=== PATIENT | female | born 1955 | race Caucasian/White ===

== ENCOUNTER 2018-12-14 00:28 | Outpatient (CLI) | payer BC, SELFPAY ==
--- NOTE | 2018-12-14 17:30 | DI.MAMMO_ITS ---
SYMPTOMS/DIAGNOSIS: SCREENING, Z12.31 MAMMOGRAM: Mammograms were interpreted according to the usual protocol including computer analysis with CAD system, tomosynthesis and C view imaging. The breasts are of moderate density with fairly symmetrical distribution of fibroglandular tissue. No dominant mass or clumped microcalcification is identified in either breast. Current examination is compared with previous examinations including May 2016 and there has been no gross interval change in appearance in comparison with the previous studies. CONCLUSION: No specific evidence of malignancy at this time. Routine screening examinations are suggested at yearly intervals in this age group according to the ACS/ACR guidelines. Category 1, breast density category B. MQSA ASSESSMENT OF FINDINGS: Negative. Category 1. Patient will receive a letter notifying them of these results. BI-RADS category B. There are scattered areas of fibroglandular density.
== END 2018-12-14 00:48 ==
PROVIDERS: PCP Internal Medicine; Visit Provider Student in an Organized Health Care Education/Training Program
DX: Z12.31 Encounter for screening mammogram for malignant neoplasm of breast (principal)
CPT/HCPCS: 77063; 77067

== ENCOUNTER 2018-12-17 02:00 | Outpatient (CLI) | payer BC, SELFPAY ==
[2018-12-17 08:49] LABS: Calculated LDL 206; Cholesterol 288 mg/dL (50-200); Glucose 98 mg/dL (70-100); HDL Cholesterol 67 mg/dL (40-60); TSH (W/Ref FT4) 2.15 uIU/mL (0.358-3.74); Triglyceride 79 mg/dL (30-150)
== END 2018-12-17 02:20 ==
PROVIDERS: PCP Internal Medicine; Visit Provider Internal Medicine
DX: E03.9 Hypothyroidism, unspecified (principal); E78.5 Hyperlipidemia, unspecified; Z83.3 Family history of diabetes mellitus; Z13.1 Encounter for screening for diabetes mellitus
CPT/HCPCS: 36415; 80061; 82947; 83721; 84443

== ENCOUNTER 2019-04-17 22:10 | Observation (INO) | payer BC, SELFPAY ==
[2019-04-17 22:15] VITALS: BP 139/65; PULSE 89; RESP 16; TEMP 36.7; O2SAT 98
--- NOTE | 2019-04-17 22:19 | DI.RAD_ITS ---
EXAM: XR ANKLE LT COMPLETE INDICATION: pain after twisting. COMPARISON: No exams were available for comparison TECHNIQUE: 2D digital imaging was performed. FINDINGS: A trimalleolar fracture of the left ankle is demonstrated with disruption of the mortise joint with a nterior displacement of the tibia at the tibiotalar joint. Prominent soft tissue swelling is noted a bout the ankle.
--- NOTE | 2019-04-17 22:21 | W.ED.GENAD ---
Discharge Plan Disposition [facility] Condition: Stable Discharge Details Chief Complaint: Orthopedic Clinical Impression: Closed trimalleolar fracture of left ankle Primary Care Provider: Nirmala Flores ED Provider: Johnny Duffy Home Meds and New Rx's Prescriptions: No Action bupropion HCl 75 mg tablet 75 mg PO DAILY Qty: 90 RF: 3 sertraline 50 mg tablet 50 mg PO DAILY Qty: 90 RF: 2 levothyroxine 75 mcg tablet 75 mcg PO DAILY Qty: 90 RF: 2 Medical Decision Making 63-year-old female who stepped oddly on her left ankle with a twisting motion at home, with immediate pain and deformity. She has primarily medial malleoli or ecchymosis, swelling, tenderness on exam. Vascular exam is unremarkable, capillary refill less than 2 seconds, sensation intact throughout. Ice placed, analgesia offered, patient referred for x-ray which reveals displaced trimalleolar ankle fracture. Patient given fentanyl, closed reduction attempted with improved clinical alignment. Postreduction x-rays were persistent posterior displacement. Case discussed with Dr. Rivera who will admit the patient overnight for operative repair in the morning. HPI General Mode of arrival: wheelchair. Date/Time Provider Initiated Documentation: 04/17/19 22:10. Limitations to Documentation: no limitations. Information obtained by: patient. History of Present Illness 63 year old F presents to the emergency department with the chief complaint of Left ankle pain after twisting and landing on it uncomfortably, described as moderate, Quality is described as dull, and is localized to the lower extremity. Patient reports no radiation. Patient started experiencing this minute(s) and it has been constant. No relieving factors improve symptom(s), No exacerbating factors reported . Patient notes no other symptoms.. Patient did receive the following treatments prior to arrival, none Related Data Home Medications Medication Instructions Recorded Confirmed bupropion HCl 75 mg tablet 75 mg PO DAILY #90 tab 11/23/18 04/17/19 sertraline 50 mg tablet 50 mg PO DAILY #90 tab-cap 11/24/18 04/17/19 levothyroxine 75 mcg tablet 75 mcg PO DAILY #90 tab-cap 02/17/19 04/17/19 Previous Rx's Medication Instructions Recorded bupropion HCl 75 mg tablet 75 mg PO DAILY #90 tab 11/23/18 sertraline 50 mg tablet 50 mg PO DAILY #90 tab-cap 11/24/18 levothyroxine 75 mcg tablet 75 mcg PO DAILY #90 tab-cap 02/17/19 Allergies Allergy/AdvReac Type Severity Reaction Status Date / Time lanolin Allergy Severe itching Verified 12/22/18 16:00 and rash nickel Allergy Unknown RASH Verified 12/22/18 16:00 perfume Allergy Unknown unknown Verified 12/22/18 16:00 thimerosal Allergy Unknown unknown Verified 12/22/18 16:00 General Stated Complaint: Orthopedic KWAME: 4 Review of Systems Review of Systems Narrative: No numbness or tingling. Denies other injury. She has otherwise been well. PFSH Surgical History Ligation of fallopian tube BSO Social History Smoking/Tobacco Use Status: Never Alcohol Intake: current Alcohol Intake frequency: 0-2 drinks per day Alcohol type: wine Drug use: Never Number of Children: 1 current occupation: [employer] Seatbelt use: always Drive intox or ride w/intox tractor trailer moving van driver: No Working smoke detector in home: Yes Fire extinguisher in home: Yes Carbon monox detector in home: Yes Do you feel safe at home: Yes Do you feel safe in your relationship?: Yes Exam Narrative Exam Narrative: GEN: awake, alert, oriented 3. Pleasant, well groomed, interactive. HEAD: Normocephalic, atraumatic ENT: Mucous membranes moist, External ear exam unremarkable EYES: PERRL, EOMI EXT: Right lower extremity unremarkable. Left lower extremity with medial malleoli are swelling, ecchymosis, tenderness. Palpable DP bilaterally. Distal motor is intact. Range of motion is limited by pain. Neuro: Grossly normal neurologic exam, conversant, interactive. Psych: Speech fluent, thoughts congruent, affect normal Course Vital Signs Vital signs: Vital Signs Temperature 36.7 C 04/17/19 22:15 Pulse 89 04/17/19 22:15 Respiratory Rate 16 04/17/19 22:15 Blood Pressure 139/65 04/17/19 22:15 Pulse Oximetry 98 04/17/19 22:15 Temperature 36.7 C 04/17/19 22:15 Temperature Source Skin 04/17/19 22:15 Pulse 89 1005/19 22:15 Respiratory Rate 16 04/17/19 22:15 Blood Pressure 139/65 04/17/19 22:15 Blood Pressure Position Sitting 04/17/19 22:15 Pulse Oximetry 98 04/17/19 22:15 Oxygen Delivery Method Room Air 04/17/19 22:15 Oxygen Flow Rate 0 04/17/19 22:15
--- NOTE | 2019-04-17 23:20 | DI.RAD_ITS ---
EXAM: XR ANKLE LT 2V INDICATION: s/p closed reduction. COMPARISON: XR ANKLE LT COMPLETE from 04/17/2019 TECHNIQUE: 2D digital imaging was performed. FINDINGS: Post reduction examination again reveals a fracture dislocation of the distal tibia with fractures of the medial and lateral and posterior malleoli.
[2019-04-17] MEDS: fentaNYL 100 MCG/2 ML VIAL 75 MCG IVP (23:25)
--- NOTE | 2019-04-17 23:26 | DI.VRAD_ITS ---
PROCEDURE INFORMATION: Exam: XR Left Ankle Exam date and time: 04/17/2019 10:19 PM Clinical history: 63 years old, female; Ankle; Left; Patient HX: Pain after twisting TECHNIQUE: Imaging protocol: XR Left ankle. Views: 3 or more views. COMPARISON: No relevant prior studies available. FINDINGS: Bones/joints: There is a trimalleolar fracture of the ankle with apex volar angulation of the fractured distal fibula and up to 1.1 cm of distraction of the angulated fibula fracture. There is also dorsal dislocation of the talus relative to the tibial plafond. Soft tissues: Marked superficial soft tissue swelling is present. IMPRESSION: Trimalleolar ankle fracture with dorsal dislocation of the talus relative to the tibia. The sheath Dictated and Authenticated by: Alo Long MD. Ordering:CHARLOTTE Turner MD
[2019-04-18] VITALS (9 sets, daily range): BP systolic 87–146; BP diastolic 36–88; PULSE 75–92; RESP 12–18; TEMP 36.2–36.9; O2SAT 95–98
--- NOTE | 2019-04-18 00:02 | DI.VRAD_ITS ---
PROCEDURE INFORMATION: Exam: XR Left Ankle Exam date and time: 04/17/2019 11:31 PM Clinical history: 63 years old, female; Condition or disease; Other: Post reduction views; Patient HX: S/P closed reduction TECHNIQUE: Imaging protocol: XR Left ankle. Views: 1 or 2 views. COMPARISON: CR XR ANKLE LT COMPLETE 04/17/2019 10:50 PM FINDINGS/IMPRESSION: Bones/joints: Soft cast material overlies the [id number] and limits evaluation. Redemonstration of the trimalleolar fracture and dorsal dislocation of the talus. Dictated and Authenticated by: Alo Long MD. Ordering:CHARLOTTE Turner MD
[2019-04-18 00:51] LABS: Anion Gap 13.2 mmol/L (3-11); BUN 16 mg/dL (7-18); CO2 23.8 mmol/L (21.0-32.0); Calcium 8.6 mg/dL (8.5-10.1); Chloride 106 mmol/L (98-107); Glucose 102 mg/dL (70-100); Potassium 4.2 mmol/L (3.5-5.1); Sodium 143 mmol/L (136-145)
[2019-04-18] MEDS: Ketorolac 15 MG/ML VIAL IVP ×3 (00:58→23:06)
[2019-04-18] MEDS: Normal Saline Flush 10 ML SYR IVP ×4 (00:58→23:07)
[2019-04-18] MEDS: oxyCODONE 5 MG TAB PO ×2 (02:19→07:38)
--- NOTE | 2019-04-18 07:23 | OCONE_ITS ---
Date of service: 04/18/19 Time of Service: 06:30 History of Present Illness History of Present Illness Chief Complaint: Left Ankle Pain Narrative: Amairani is a 63-year-old who presented to the emergency department late last night for left ankle pain and deformity. She tripped awkwardly within her home and suffered immediate pain and deformity to her left ankle. She reports that this ankle has always been a weak spot. She reports many times hitting it or banging on things. She reports having numbness to the left foot and always feeling like the left ankle was getting hurt. She is unsure exactly what she tripped on her stumbled on but she denies having any lightheadedness, dizziness, chest pain or palpitations at the time. She did not hit her head. She did not lose consciousness. Her only pain is in the left ankle. A re duction attempt was made by Dr. Duffy but was unsuccessful. I was called in consultation. Consults Consult date: 04/17/19 Requesting physician: Johnny Duffy Consult Reason Left ankle fracture dislocation Assessment and Plan Assessment and plan (1) Fracture dislocation of left ankle: Status: Acute Assessment and plan: Amairani is a 63-year-old who suffered a fracture dislocation of the left ankle. An attempted reduction was done last night but there is still notable posterior displacement. It is imperative that anatomic alignment is restored to prevent cartilage . Given 1 unsuccessful reduction with sedation last night, I recommend reduction in general anesthetic. If the skin is not too swollen we will proceed with operative fixation at that time. We are within 12 hours from the initial injury. I reviewed the technical details of the case with Amairani. I also discussed the risk to include bleeding, infection, pain, stiffness, hardware failure, hardware prominence, malunion, nonunion, need for repeat procedures, damage to nerves and vessels, blood clot. Despite these risk, she elects to proceed. She does express significant anxiety about having to manage life. I did express that she will be nonweightbearing for 6 weeks but really not weightbearing on the foot without an assistive device for 3 months. She expresses concern about taking care of herself at home but is adamant that she had will not go to any nursing facility. I did discuss the use of a knee scooter to assist with ambulation but no matter what, she will have to maintain nonweightbearing precautions. I will have the care management team meet with her as well today. After surgery, she can discharge to home but may need 1 additional night to work with physical therapy. Qualifiers: Encounter type: initial encounter Fracture type: closed Qualified Code(s): S82.892A - Other fracture of left lower leg, initial encounter for closed fracture Review of Systems Review of Systems ROS Unobtainable: All systems reviewed & are unremarkable except as noted in HPI and below PFSH Surgical History Ligation of fallopian tube BSO Family History Brother Heart disease Father Heart disease Sister Diabetes Hypothyroid Mother Personal history of malignant neoplasm lung Social History Smoking/Tobacco Use Status: Never Alcohol Intake: current Alcohol Intake frequency: 0-2 drinks per day Alcohol type: wine Drug use: Never Number of Children: 1 current occupation: [employer] 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 She is able to extend and flex the great toe. Sensation is grossly intact over the superficial peroneal nerve distribution. However, she feels that it is not normal. Intact deep peroneal and tibial nerve sensation. Capillary refill less than 2 seconds. Results Last Vital Signs Temp 36.9 C 04/18/19 00:32 Pulse 88 04/18/19 00:32 Resp 18 04/18/19 00:32 BP 146/88 H 04/18/19 00:32 Pulse Ox 96 04/18/19 00:32 Labs Result diagrams: 04/18/19 00:23 Labs: Laboratory Results - last 24 hr 04/18/19 00:23 Sodium 143 Potassium 4.2 Chloride 106 Carbon Dioxide 23.8 Anion Gap 13.2 H BUN 16 Creatinine 0.80 Estimated GFR/1.73 m2 >= 60.00 Glucose 102 H Calcium 8.6 Imaging Imaging Studies: X-ray of the left ankle shows a trimalleolar ankle fracture wit h notable dislocation of the talus posteriorly. There is a long oblique fracture of the fibula in the coronal plane with some comminution at the level of the syndesmosis. There is also a notable posterior malleolar fracture fragment and some comminution of the medial malleolus. Postreduction films show some improvement in alignment but still persistent posterior displacement of the talus.
--- NOTE | 2019-04-18 07:59 | DI.RAD_ITS ---
EXAM: XR ANKLE LT 2V CLINICAL HISTORY: FRACTURE DISLOCATION LEFT ANKLE. TECHNIQUE: 2D and realtime digital imaging was performed. COMPARISON: XR ANKLE LT 2V from 04/17/2019 FINDINGS: When compared with the previous examination, the patient is status post plate and screw fixation of t he lateral malleolar fracture and screw fixation of the tibial fracture, caodaism of the mortise i s noted. The fracture fragments in excellent position. FLUORO TIME: 77.1 seconds
[2019-04-18] MEDS: Bupivacaine 0.5% Pres-Free 30 ML VIAL (08:33)
[2019-04-18] MEDS: Lactated Ringers 1,000 ML 30 ML IV (08:48)
--- NOTE | 2019-04-18 08:54 | PDOC.CMIN ---
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 Her daughter, Dia resides nearby in [place], [place] and is her primary support person. Amairani reports being completely independent at baseline in the community. CURRENT FUNCTIONAL STATUS:: Amairani was lying in bed, leg elevated. She reported having a nerve block and being nervous about the block wearing off which she anticipated happening around midnight. Amairani's daughter, Dia and Dia's significant other, Larry. Amairani was pleasant in interaction and forthcoming with information. She reported Dia and Larry were staying at her house to care for her dogs including her new puppy until she returns home. ADVANCE DIRECTIVES:: None on file. Has patient been provided with information about the portal?: Yes Did the patient sign up for the portal?: No CODE STATUS:: Full Code INSURANCE COVERAGE / FINANCIAL ISSUES:: BC/BS CURRENT HOME/COMMUNITY SERVICES/EQUIPMENT:: No current services or equipment. PRIMARY CARE PHYSICIAN:: Nirmala Flores POTENTIAL DISCHARGE NEEDS:: FWW coordination. Stair training with PT. Amairani reports she will be reaching out to a friend to possibly borrow a knee scooter. PATIENT/FAMILY EDUCATION NEEDS:: Review discharge instructions, discuss Ask Me Three. ANTICIPATED BARRIERS TO DISCHARGE:: None identified. TRANSPORTATION:: Via private vehicle with her daughter. PLAN:: Amairani will continue to be closely monitored for pain and work with PT on increased mobility, stair training and independent transfers. She will return home when ready per MD. She will transport via private vehicle with her daughter, Dia.
[2019-04-18] MEDS: ceFAZolin 2,000 MG in Normal Saline 100 ML 200 MG IVPB (09:00)
--- NOTE | 2019-04-18 10:43 | PHARADMIT ---
Admission Pharmacy Clinical Review LEFT ANKLE FRACTURE (OR on 04/18/19-) Code Status Full Code Current Weight 79.379 kg Renally Cleared and Narrow Therapeutic Index Meds CrCl~59ml/min QTc Value / Action Taken n/a BP Control, Fever BP 146/88 Afebrile Pain 8/10 Electrolytes reviewed K+ 4.2 DVT Prophylaxis ASA 81mg po BID Opiate Usage / Scheduled Bowel Regimen Ordered yes Oxy/no bowel meds Plt/SCr for Heparin / Enoxaparin INR for Warfarin H/H stable, WBC/Bands ?? none drawn Antibiotic appropriateness Cefazolin post-op but not stopped @ 3 doses.....anticipate pt will not be here for very long, verified w/MD x 3 doses Cultures and Sensitivities none Surgical ABX d/c within 24 hr DM control / Insulin Dosing BG 102 Heart Failure (Check EF%) (REYES's, B-Block, Diuretics) IV to PO Switch Home Meds Reviewed Note under Bupropion states pt no longer taking..placed med on hold Home Meds Not Ordered ok Comments
--- NOTE | 2019-04-18 11:56 | NUR.NOTE ---
Nursing Note: Patient transferred from PACU back to floor via bed at approximately 1150. VSS. See worklist. Patient drowsy. Positive pedal pulse on left foot. Patient can wiggle toes.
[2019-04-18] MEDS: Acetaminophen 500 MG TAB 1000 MG PO ×2 (13:23→20:25)
[2019-04-18] MEDS: Aspirin E.C. 81 MG TABEC PO (20:25)
[2019-04-19 00:20] VITALS: BP 115/69; PULSE 70; RESP 17; TEMP 36.5; O2SAT 95
[2019-04-19] MEDS: Levothyroxine 75 MCG TAB PO (06:51)
--- NOTE | 2019-04-19 07:59 | DSE_ITS ---
Date of service: 04/19/19 Time of Service: 08:00 DS: Diagnosis Discharge Diagnosis (1) Fracture dislocation of left ankle: Status: Acute Discharge Plan Disposition Patient Disposition: HOME Condition: Stable Discharge Details Chief Complaint: Orthopedic Clinical Impression: Closed trimalleolar fracture of left ankle Reason For Visit: LEFT ANKLE FRACTURE DISLOCATION Admit Date/Time: 04/17/19 23:59 Admit Provider: Jace Rivera Attending Provider: Jace Rivera Primary Care Provider: Nirmala Flores ED Provider: Johnny Duffy Hospital Course Hospital Course: Patient was admitted to the medical/surgical floor for a left ankle fracture dislocation. She was taken to the operating room for fracture fixation. It was tolerated well without any notable medical, surgical, or anesthetic complications. Mobilization began postoperatively, maintaining NWB precautions. Vitals were stable. Physical therapy worked with the patient and was cleared for discharge home. No acute medical issues. Home Meds and New Rx's Prescriptions: New aspirin 81 mg tablet,delayed release (DR/EC) 81 mg PO BID Qty: 60 RF: 0 acetaminophen 500 mg tablet 1,000 mg PO Q8H PRN (Reason: pain) Qty: 90 RF: 3 ibuprofen 600 mg tablet 600 mg PO TID PRNQty: 90 RF: 3 oxycodone 5 mg tablet 5 mg PO Q4H Qty: 10 RF: 0 Continued bupropion HCl 75 mg tablet 75 mg PO DAILY Qty: 90 RF: 3 sertraline 50 mg tablet 50 mg PO DAILY Qty: 90 RF: 2 levothyroxine 75 mcg tablet 75 mcg PO DAILY Qty: 90 RF: 2 Discharge Instructions Additional Instructions: Activity: You are NON WEIGHT BEARING. You should keep the leg elevated as much as possible. You may wiggle your toes and move your hip and knee. Dressings: You should keep your splint clean and dry. Do NOT get wet or dirty. If you have issues with your splint, please call the office at [phone] or the hospital after hours. Medications: - You should take Tylenol and Ibuprofen around the clock for baseline pain. - You have been prescribed a stronger narcotic, Oxycodone, for breakthrough pain. - You should take a Baby Aspirin (81mg) twice a day for blood clot prevention. Follow-up: 2 weeks Referrals: Jace Rivera MD [ [facility] STAFF PHYSICIAN] - Activity:: Activity as Tolerated Equipment/Supplies:: Walker Diet:: As Tolerated Discharge Orders Discharge Orders: Discharge Order (Routine); Ordered 04/19/19 Ordered By: Jace Rivera DS: Summary Status at Discharge Functional status at discharge: uses cane/walker Overall status at discharge: patient is back to baseline Mental Status: mental status grossly normal Speech and Movement: speech and movement normal Mood: congruent mood Affect: normal affect Exam Psych Mental Status: mental status grossly normal Speech and Movement: speech and movement normal Mood: congruent mood Affect: normal affect DS: Data Vitals/I&O Vitals and I&O: Vital Signs Temperature 36.5 C 04/19/19 00:20 Temperature Source Tympanic 04/19/19 00:20 Pulse 70 04/19/19 00:20 Pulse Rhythm Regular 04/18/19 23:10 Respiratory Rate 17 04/19/19 00:20 Respiratory Effort Non-Labored 04/18/19 23:10 Respiratory Depth Normal 04/18/19 23:10 Respiratory Pattern Normal 04/18/19 23:10 Blood Pressure 115/69 04/19/19 00:20 Blood Pressure Position Sitting 04/17/19 22:15 Pulse Oximetry 95 04/19/19 00:20 Respiratory End-tidal CO2 42 04/18/19 11:32 Oxygen Delivery Method Room Air 04/19/19 00:20 Oxygen Flow Rate 0 04/19/19 00:20 Pain Level 0 04/19/19 03:49 Intake & Output 04/18/19 04/18/19 04/19/19 11:59 23:59 11:59 Intake Total 1000 / 1483.5 483.5 / 1483.5 400 / 400 Output Total 400 / 400 Balance 600 / 1083.5 483.5 / 1083.5 400 / 400 Weight 79.379 kg Intake: IV 1000 / 1243.5 243.5 / 1243.5 Oral 240 / 240 400 / 400 Output: Urine 400 / 400 Other: Urine Color Yellow Urine Appearance Clear Comment Unable to measure. Patient voided in the bathroom independently. Emesis Description None Voiding Methods Toilet Toilet [facility] Surgical History Ligation of fallopian tube BSO Family History Brother Heart disease Father Heart disease Sister Diabetes Hypothyroid Mother Personal history of malignant neoplasm lung Social History Smoking/Tobacco Use Status: Never Alcohol Intake: current Alcohol Intake frequency: 0-2 drinks per day Alcohol type: wine Drug use: Never Number of Children: 1 current occupation: [employer] 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
[2019-04-19] MEDS: Aspirin E.C. 81 MG TABEC PO (08:07)
[2019-04-19] MEDS: Sertraline 50 MG TAB PO (08:08)
[2019-04-19] MEDS: Normal Saline Flush 10 ML SYR IVP ×2 (08:08→10:35)
[2019-04-19] MEDS: Acetaminophen 500 MG TAB 1000 MG PO (08:11)
[2019-04-19] MEDS: Ketorolac 15 MG/ML VIAL IVP (10:35)
--- NOTE | 2019-04-19 11:58 | PT.INIE ---
Date of service: 04/19/19 Time of Service: 10:00 PT Notes Inpatient Physical Therapy Evaluation Date: 04/19/19 Referring Doctor: Dr Rivera PT Orders: PT CONSULT: s/p ORIF left ankle Precautions: NWB LLE Patient Profile/Admitting Diagnosis: PT consult referred on postop day 1 status post left ankle ORIF. PMHX: Noncontributory Social History/Home Situation: Patient lives in a single level home with 4 outdoor steps to enter. She has bilateral rails, although reports that she can reach only one rail at the time. She lives alone, although has assistance from an adult daughter who lives nearby. She is typically fully independent, working full-time in an administrative position. Equipment Owned/DME: Patient reports that she has access to a walker. She also has a friend with a knee scooter, which she is considering borrowing. Subjective: Amairani states that she is been up and about with a walker. She would prefer to transition to use of crutches, stating she is concerned about stair management and being able to get around at work. Objective: General Observation: Resting in bed with left lower extremity elevated. She has a Mack wrap in place at the left ankle. No lines. Mental Status: A and O x3 Pain: 0/10 ROM: Right Upper Extremity: WFL Left Upper Extremity: WFL Right Lower Extremity: WFL Left Lower Extremity: Left ankle immobilized. Range of motion at knee and hip WFL. Strength: Right Upper Extremity: Stopperer Assembler is strong and equal. Biceps and triceps 5/5. Left Upper Extremity: Stopperer Assembler is strong and equal. Biceps and triceps 5/5. Right Lower Extremity: Hip flexion 5/5. Quads 5/5. Ankle dorsiflexion 5/5. Left Lower Extremity: Hip flexion at least 3/5. Quads 3/5 or greater. Patient is unable to wiggle toes, reporting continued numbness postoperatively. Sensation: Diminished sensation to light touch distally Bed Mobility/Transfers: Supine?sit: Independent Sit?supine: Independent Sit?stand: Independent with NWB left lower extremity Stand?sit: Independent, NWB LLE Gait: Patient ambulates with bilateral axillary crutches, NWB LLE 20 feet with supervision only. She ambulates an additional 100 feet x 2 with CG x1. She requires intermittent cues and rest periods. She was instructed in management of therapeutic stairs with left axillary crutch and RUE to rail, maintaining NWB LLE. She requires CG x1 and cues for effective completion, with good safety and tolerance. Balance: Static Sitting: Normal Dynamic Sitting: Normal Static Standing: Good Dynamic Standing: Fair Informed Consent/Education: Patient instructed in purpose of PT consult and plan of care. Patient received gait training for straight plane ambulation and stair management, both with utilization of axillary crutches. Patient was issued and fitted with axillary crutches for home use. Assessment: Patient is a 63 year old female referred to physical therapy services with the diagnosis of left ankle trimalleolar fracture, 1 day status post ORIF. Patient presents with clinical signs and symptoms consistent with postoperative status, as demonstrated by the following impairment level findings: 1. Gait impairments due to NWB LLE 2. Range of motion deficits due to postoperative immobilization of left ankle 3. Decreased sensation LLE 4. Decreased activity tolerance due to NWB LLE Impairments are contributing to the following functional limitations: 1. Decreased activity tolerance 2. gait impairments due to NWB LLE Patient is assessed as a Low 21805 complexity based on the following: History: 63-year-old female 1 day postop left ankle ORIF, now NWB LLE x6 weeks. No significant contributing medical history. Examination: Functional limitations as noted above Presentation: Evolving due to acute postoperative status Decision Making: Low complexity Plan of Care/Treatment Plan: Patient received a single session of PT intervention for evaluation and gait training. She is able to effectively manage axillary crutches with both straight plane ambulation and stair management. She was issued bilateral axillary crutches, which were fitted to her during today's session. She is safe for transition back home with assistance from family once medically cleared. DISCHARGE RECOMMENDATIONS: Home with bilateral axillary crutches TREATMENT CODE/TIME: 10:00?1035 ([id number], [id number]) Aparna Preciado, PT, DPT [facility]
--- NOTE | 2019-04-19 14:41 | PDOC.CMDIS ---
- If Service Date Differs Date of service: 04/19/19 Time of Service: 14:41 LACE Index Scoring Tool - Questions: Length of Stay (in days): 3 Acuity (Admit via E.D.?): Yes E.D. Visits: 1 - Answers: Total Score: 7 Risk of Readmission: Low Risk Care Management Discharge Reason for Hospitalization: Left Ankle Fracture, dislocation Discharge Plan: Amairani will return home with no additional services at this time. She will go home with crutches, coordinated by PT. She asked CM to assist with a temporary handicap placard. CM printed out application from the DMV website and provided it to Amairani. Her friend is transporting her via private vehicle. She will follow up with Ortho as recommended. Patient/Family Education Needs: Review discharge instructions regarding activity levels and medication, discussion of self care needs including Ask Me Three
--- NOTE | 2019-04-20 09:44 | ROE_ITS ---
DATE OF SURGERY: April 18, 2019 PREOPERATIVE DIAGNOSIS: Left ankle fracture dislocation. POSTOPERATIVE DIAGNOSIS: Same. SURGERY: Open reduction and internal fixation of left ankle fracture, medial, lateral, and posterior malleolus. SURGEON: Jace Rivera M.D. FISH SALTER: Adam Calderón PA-C ASSISTING SURGEON: Sixto Buchanan M.D. ESTIMATED BLOOD LOSS: Minimal. ANESTHESIA: General with popliteal nerve block. COMPLICATIONS: None. DISPOSITION: The patient was awakened from anesthesia and taken to the PACU in a stable condition. INDICATION FOR PROCEDURE: Amairani is a 63-year-old who slipped awkwardly on Friday night. She suf fered an immediate deformity to the left ankle and was diagnosed with ankle fracture dislocation in [facility]. Attempted reduction was performed but the talus remained subluxed posterio rly. Given these findings, I recommended for urgent open reduction and internal fixation. I reviewe d the risks of the procedure with the patient to include bleeding, infection, pain, stiffness, wound healing complications, skin disruption, damage to nerves and vessels, damage to muscles and tendons, malunion, nonunion, hardware failure, hardware prominence, clot. Despite these risks, she elected to proceed. PROCEDURE DESCRIPTION: Amairani was greeted in the preoperative holding area. Her identity was confi rmed and the correct side was identified and marked. The consent was reviewed with the patient and s igned. The patient was first taken to the PACU where administration of a regional nerve block was pe rformed, popliteal nerve block. After successful administration of the regional anesthetic, she was taken to the operating room. A general anesthetic was given. She was positioned in the supine posit ion. The left leg was placed on a Bone Foam ramp. A tourniquet was placed high up on the left thigh . The left leg was then prepped with ChloraPrep and draped in a standard fashion. Prophylactic anti biotics in the form of Cefazolin were given. A time-out was performed for safe surgery. The limb was then exsanguinated and the tourniquet was inflated to 275 mmHg, where it stayed for eigh ty minutes. A curved linear incision was first made over the medial malleolus. This was taken down sharply throu gh the skin. The saphenous nerve was dissected out of the way and the fracture was identified. Ther e was some comminution anteriorly of the medial malleolar fragment. The fracture was debrided at the level of the fracture and opened up. This exposed the anterior articular space of the tibiotalar jeanette int. The joint was inspected for any cartilage damage of the talus. The joint was thoroughly irriga pam to make sure there were no bony fragments of the joint. Once this was completed, our attention w as then turned to the lateral aspect of the ankle. A longitudinal incision was made over the posteri or border of the lateral malleolus and the fibula. This was taken down sharply through the skin. T he peroneal tendons were identified. The fracture was identified over the fibula and this was incise d just at the level of the fracture and then using a Noe Elevator was extended proximally and distall y. There was a large posterior component to the fracture. With some slight traction and internal ro tation the fracture was reduced and clamped. While it was clamped, a 3.5 mm screw was placed in lag fashion. This reapproximated the two bones. A second lag screw was attempted to be placed but it se emed to displace the fracture. The fibula was quite narrow in the area and therefore this was remove d and a clamp was left on to provide support. With the fibula reduced an x-ray was performed and it showed that the posterior malleolar fragment was mostly reduced. However, there was about [address] ep-off. Therefore, I dissected posteriorly behind the peroneal tendons through a posterolateral appr oach between the posterior tibia and the FHL. I was able to manually place an instrument on the post erior malleolus to reduce it back down to where it should be. Using a tissue protector a K-Wire from the 3.5 mm cannulated screw system was inserted through the posterior malleolar fragment and into th e tibia. This provided fixation of the posterior malleolar fragment in near to anatomic reduction. The near cortex was drilled and then a partially-threaded screw was placed through the posterior mall eolar fragment into the tibia. This provided excellent compression. The wire was removed and our at tention was turned back to the fibula. A neutralization plate was then positioned over the lateral fibula. This was an 8-hole plate, tom morales one-third tubular, was contoured appropriately. Once it was in position it was checked to make amor e we had adequate holes both above and below the fracture. A non-locking screw was placed both below the fracture and above the fracture to bring the plate down to bone. The plate was on bone for the entire length of its course. Two locking screws were placed distally to the most-distal aspect of th e plate in a unicortical fashion. A total of three non-locking screws were placed proximal to the fr acture site. This provided adequate fixation of the fibular fracture. Our attention was then turned back to the medial malleolar fragment. The fracture fragments were once again debrided at their edges to ensure appropriate reduction. A K- Wire from the 3.5 mm cannulated screw system was placed posteriorly. A second K-Wire was placed ante riorly. The anterior K-Wire was trying to grab the comminution of the anterior malleolus. Unfortuna tely, the fragmentation was too much and it still was unable to be grabbed by this K-Wire. However, the medial malleolus was adequately reduced, although there was some bone missing in that most-anteri or aspect. The near cortex was drilled and two 3.5 mm screws were placed. This had excellent reduct ion of the medial malleolar fragment. The anterior aspect of the joint was inspected and once again there was comminution. The comminuted bone was packed back into the fracture defect. The deep tissu e was then closed over top with a #3-0 Vicryl, after thorough irrigation. Attention was then turned back to the fibular side. The deep fascia over the plate was reapproximated with #0 Vicryl. The esthela p tissues were closed with #3-0 Vicryl. The skin was closed with #4-0 Nylon, both medially and later ally. Xeroform and 4x4's were then applied. The tourniquet was released. A well-padded posterior s lab splint was applied. At the end of the case all counts were correct. She suffered no notable com plications. She was transferred back to the PACU in stable condition.
== END 2019-04-19 12:52 | disposition home or self-care (01) ==
LOC: ER 04-18 00:14 → MS 04-18 00:29
PROVIDERS: Admitting Provider Student in an Organized Health Care Education/Training Program; Emergency Provider Emergency Medicine; PCP Internal Medicine; Visit Provider Student in an Organized Health Care Education/Training Program
PROC: 0QSK04Z Reposition Left Fibula with Internal Fixation Device, Open Approach (ICD-10-PCS; CPT 27823; principal; 2019-04-18 08:30)
DX: S82.852A Displaced trimalleolar fracture of left lower leg, initial encounter for closed fracture (principal); X50.0XXA Overexertion from strenuous movement or load, initial encounter; G89.18 Other acute postprocedural pain; E03.9 Hypothyroidism, unspecified
CPT/HCPCS: 27823; 80048; 96374; 97116; 97161; 99253; 99285; NC; 73600; 73610; 99284; E0114; G0378; J0690; J1100; J1885; J2250; J2405; J3010

== ENCOUNTER 2019-05-03 13:34 | Outpatient (CLI) | payer BC, SELFPAY ==
--- NOTE | 2019-05-03 11:03 | DI.RAD_ITS ---
EXAM: XR ANKLE LT COMPLETE INDICATION: 1st post op. COMPARISON: XR ANKLE LT 2V from 04/17/2019 XR ANKLE LT 2V from 04/18/2019 TECHNIQUE: 2D digital imaging was performed. FINDINGS: There has been no change in fracture or hardware alignment.
== END 2019-05-03 13:54 ==
PROVIDERS: PCP Internal Medicine; Visit Provider Student in an Organized Health Care Education/Training Program
DX: S82.852D Displaced trimalleolar fracture of left lower leg, subsequent encounter for closed fracture with routine healing (principal)
CPT/HCPCS: 73610

== ENCOUNTER 2019-05-31 13:42 | Outpatient (CLI) | payer BC, SELFPAY ==
--- NOTE | 2019-05-31 13:22 | DI.RAD_ITS ---
EXAM: XR ANKLE LT COMPLETE INDICATION: F/U SURGERY. COMPARISON: No exams were available for comparison TECHNIQUE: 2D digital imaging was performed. FINDINGS: Hardware is again noted through both malleoli. There has been no change in fracture or hardware ali gnment.
== END 2019-05-31 14:02 ==
PROVIDERS: PCP Internal Medicine; Visit Provider Student in an Organized Health Care Education/Training Program
DX: S82.842D Displaced bimalleolar fracture of left lower leg, subsequent encounter for closed fracture with routine healing (principal)
CPT/HCPCS: 73610

== ENCOUNTER 2019-07-01 13:42 | Outpatient (CLI) | payer BC, SELFPAY ==
--- NOTE | 2019-07-01 13:42 | DI.RAD_ITS ---
EXAM: XR ANKLE LT COMPLETE CLINICAL HISTORY: L ankle ORIF TECHNIQUE: COMPARISON: XR ANKLE LT COMPLETE from 05/31/2019 FINDINGS: Three views were obtained and show plate and screw fixation in place in the distal tibia and fibula w ith no change in alignment in comparison with prior examination of May 31. The ankle mortise is well maintained. IMPRESSION:
== END 2019-07-01 14:02 ==
PROVIDERS: PCP Internal Medicine; Visit Provider Physician Assistant
DX: S82.892A Other fracture of left lower leg, initial encounter for closed fracture (principal); S82.852D Displaced trimalleolar fracture of left lower leg, subsequent encounter for closed fracture with routine healing
CPT/HCPCS: 73610

== ENCOUNTER 2019-12-09 03:31 | Outpatient (CLI) | payer OTHER, SELFPAY ==
[2019-12-09 15:30] LABS: TSH (W/Ref FT4) 0.91 uIU/mL (0.36-3.74)
== END 2019-12-09 03:51 ==
PROVIDERS: PCP Internal Medicine; Visit Provider Internal Medicine
DX: E03.9 Hypothyroidism, unspecified (principal)
CPT/HCPCS: 36415; 84443

== ENCOUNTER 2021-01-19 01:59 | Outpatient (CLI) | payer OTHER, SELFPAY ==
[2021-01-19 16:25] LABS: TSH (W/Ref FT4) 0.82 uIU/mL (0.36-3.74)
[2021-01-19 19:39] LABS: Calculated LDL 153 mg/dL (<100); Cholesterol 277 mg/dL (<200); HDL Cholesterol 48 mg/dL (40-60); Triglyceride 380 mg/dL (<150)
== END 2021-01-19 02:00 | disposition home or self-care (01) ==
LOC: LBO 02:00
PROVIDERS: PCP Internal Medicine; Visit Provider Internal Medicine
DX: E78.00 Pure hypercholesterolemia, unspecified (principal); E03.9 Hypothyroidism, unspecified
CPT/HCPCS: 36415; 80061; 84443

== ENCOUNTER 2021-03-16 04:08 | Outpatient (CLI) | payer OTHER, SELFPAY ==
--- NOTE | 2021-03-16 06:45 | DI.MAMMO_ITS ---
Exam(s) MAMMO SCREENING EXAM: MAMMO SCREENING CLINICAL HISTORY: screening,Z12.39 TECHNIQUE: Mammograms were interpreted according to the usual protocol including computer analysis w [employer] CAD system, tomosynthesis and C-view imaging. COMPARISON: FINDINGS: The breasts are of moderate density with fairly symmetrical distribution of fibroglandular tissue. N o dominant mass or clumped microcalcification is identified in either breast. The current examinatio n is compared with previous examinations including December 2018 and there has been no gross interval grady nge in appearance in comparison with the prior studies. IMPRESSION: No specific evidence of malignancy at this time. Routine screening examinations are suggested at yea rly intervals in this age group according to the ACS ACR guidelines. BI-RADS Category 1 - Negative Breast Density - Category B - Scattered areas of fibroglandular density
== END 2021-03-16 04:28 ==
PROVIDERS: PCP Internal Medicine; Visit Provider Internal Medicine
DX: Z12.31 Encounter for screening mammogram for malignant neoplasm of breast (principal)
CPT/HCPCS: 77063; 77067

== ENCOUNTER 2022-08-07 02:09 | Outpatient (CLI) | payer MEDICARE, SELFPAY ==
[2022-08-07 07:51] LABS: Calculated LDL 118 mg/dL (<100); Cholesterol 195 mg/dL (<200); HDL Cholesterol 57 mg/dL (40-60); TSH 1.38 uIU/mL (0.36-3.74); Triglyceride 100 mg/dL (<150)
== END 2022-08-07 02:10 | disposition home or self-care (01) ==
LOC: LBO 02:09
PROVIDERS: PCP Internal Medicine; Referring Provider Internal Medicine; Visit Provider Internal Medicine
DX: E03.9 Hypothyroidism, unspecified (principal); E78.5 Hyperlipidemia, unspecified
CPT/HCPCS: 36415; 80061; 84443

== ENCOUNTER 2023-04-08 02:56 | Outpatient (CLI) | payer MEDICARE, SELFPAY ==
[2023-04-08 10:40] LABS: Abs Immature Grans 0.02 10^3/uL (0.0-0.06); Absolute Eosinophil Count 0.28 10^3/uL (0.0-0.7); Absolute Lymphocyte Count 2.61 10^3/uL (1.2-3.4); Absolute Monocyte Count 0.69 10^3/uL (0.1-0.8); Absolute Neutrophil Count 4.17 10^3/uL (1.2-6.7); Basophils % 1.3; Eosinophils % 3.6; HCT 40.6 % (36.0-46.0); HGB 13.3 g/dL (11.2-15.7); Immature Grans % 0.3; Lymphocytes % 33.2; MCH 29.1 pg (27.0-33.0); MCHC 32.8 % (32.0-36.0); MCV 89 fL (80-95); MPV 10.6 fL (8.0-11.0); Monocytes % 8.8; Neutrophils % 52.8; Platelet Count 215 10^3/uL (130-400); RBC 4.57 10^6/uL (3.93-5.22); RDW 12.4 % (11.7-14.6); RDW-SD 40.3 fL; WBC 7.87 10^3/uL (4.4-10.8)
[2023-04-08 10:43] LABS: ESR 8 mm/hr (0-30)
[2023-04-08 11:11] LABS: Creatine Kinase 85 U/L (26-192)
[2023-04-08 11:26] LABS: ALT 34 U/L (14-59); AST 22 U/L (15-37); Albumin 3.5 g/dL (3.4-5.0); Alkaline Phosphatase 73 U/L (46-116); Anion Gap 6.5 mmol/L (3-11); BUN 16 mg/dL (7-18); Bilirubin, Total 0.2 mg/dL (0.2-1.0); C-Reactive Protein 0.49 mg/dL (0.0-0.3); CO2 27.5 mmol/L (21.0-32.0); CREATININE 0.9 mg/dL (0.55-1.02); Calcium 8.8 mg/dL (8.5-10.1); Chloride 99 mmol/L (98-107); Estimated GFR 70.07 (mL/min/1.73m2); Glucose 94 mg/dL (74-106); Potassium 4.1 mmol/L (3.5-5.1); Sodium 133 mmol/L (136-145); TSH (W/Ref FT4) 1.62 uIU/mL (0.36-3.74); Vitamin B12 750 pg/mL (193-986)
[2023-04-08 11:27] LABS: Folate > 20.0 ng/mL (8.6-20.0)
[2023-04-09 09:17] LABS: Cyclic Citrullinated Peptide <2.5 U/mL (<5.0)
[2023-04-09 10:26] LABS: Lyme Ab w Rflx to Lyme Confirm Negative (Negative)
[2023-04-10 13:53] LABS: Anaplasma phagocytophilum Negative (Negative); B. miyamotoi PCR Negative (Negative); Babesia divergens/MO-1 Negative (Negative); Babesia duncani Negative (Negative); Babesia microti Negative (Negative); Ehrlichia chaffeensis Negative (Negative); Ehrlichia ewingii/canis Negative (Negative); Ehrlichia muris eauclairensis Negative (Negative)
== END 2023-04-08 02:57 | disposition home or self-care (01) ==
LOC: LBO 02:56
PROVIDERS: PCP Nurse Practitioner Adult Health; Referring Provider Nurse Practitioner Adult Health; Visit Provider Nurse Practitioner Adult Health
DX: M25.50 Pain in unspecified joint (principal); R53.83 Other fatigue
CPT/HCPCS: 36415; 80053; 82550; 85652; 86200; 87798; 82607; 82746; 84443; 85025; 86140; 86618

== ENCOUNTER → 2023-04-08 15:19 | Outpatient (CLI) | payer MEDICARE, SELFPAY ==
--- NOTE | 2023-04-08 09:30 | DI.RAD_ITS ---
Exam(s) XR ARTHRITIS SERIES EXAM: XR ARTHRITIS SERIES CLINICAL HISTORY: assess bony structures ?erosions (low susp),polyarthralgia, fatigue, M25.50. TECHNIQUE: 2D digital imaging was performed. Two views were obtained. COMPARISON: No exams were available for comparison FINDINGS: BONES: No acute fracture is present. No bony destructive lesion is seen. JOINTS: No dislocation present. There are mild degenerative changes seen in the hands bilaterally grady racterized by joint space narrowing and osteophytes. The findings are most marked at the interphalang eal joints of the fingers. The metacarpophalangeal joints are well maintained. No erosions or periart icular osteopenia is seen no soft tissue calcifications are appreciated. SOFT TISSUE: Normal. IMPRESSION: Osteoarthritis of the hands. DATA REPOSITORY: RADIATION DOSE DELIVERED:
== END ==
PROVIDERS: PCP Nurse Practitioner Adult Health; Visit Provider Nurse Practitioner Adult Health
DX: M19.041 Primary osteoarthritis, right hand; M19.042 Primary osteoarthritis, left hand
CPT/HCPCS: 36415; 80053; 82550; 85652; 86200; 87798; 73120; 82607; 82746; 84443; 85025; 86140; 86618

== ENCOUNTER → 2023-07-15 13:50 | Outpatient (BNVA) | payer MEDICARE, SELFPAY | PROVIDERS: PCP Nurse Practitioner Adult Health; Referring Provider Nurse Practitioner Adult Health; Visit Provider Surgery | DX: L82.0 Inflamed seborrheic keratosis (principal); F41.9 Anxiety disorder, unspecified; E03.9 Hypothyroidism, unspecified; E78.01 Familial hypercholesterolemia | CPT/HCPCS: 99202 ==

== ENCOUNTER → 2023-07-31 10:32 | Outpatient (BNVA) | payer MEDICARE, SELFPAY | PROVIDERS: PCP Nurse Practitioner Adult Health; Referring Provider Nurse Practitioner Adult Health; Visit Provider Surgery | DX: L82.0 Inflamed seborrheic keratosis (principal) | CPT/HCPCS: 11401 ==

== ENCOUNTER 2023-07-31 11:00 | Outpatient (REF) | payer MEDICARE, SELFPAY ==
--- NOTE | 2023-07-31 11:10 | SKI_PTH ---
PATIENT: Amairani Dudley LOC: [facility] U#:[id number] AGE/SX: 67/F ROOM: RE07/31/[address]: Denita Grullon : 1955 BED: DIS: 07/31/2023 SPEC #: [id number] RECD: 07/31/23 12:32 STATUS: ANNIE RELeonardo #: [id number] HALIMA: 07/31/23 11:[address]: Denita Grullon DEPT: Surgical Specimen RECD BY: Kiah De Jesus ENTERED: 07/31/23 12:34 SP TYPE: BRONWYN NICK DR: Ann-Marie Ladd APRN Tissues: 1 - SKIN BIOPSY(SHAVE/PUNCH) Procedures: SKIN LEVEL 4 Comments: [id number]
== END 2023-07-31 11:01 | disposition home or self-care (01) ==
LOC: LBN 11:00
PROVIDERS: PCP Nurse Practitioner Adult Health; Visit Provider Surgery
DX: L82.0 Inflamed seborrheic keratosis (principal)
CPT/HCPCS: 88305

== ENCOUNTER → 2023-08-20 01:27 | Outpatient (CLI) | payer MEDICARE, SELFPAY | PROVIDERS: PCP Nurse Practitioner Adult Health; Visit Provider Nurse Practitioner Adult Health | DX: Z12.31 Encounter for screening mammogram for malignant neoplasm of breast (principal) | CPT/HCPCS: 77063; 77067 ==

== ENCOUNTER 2023-11-04 14:31 | Outpatient (CLI) | payer MEDICARE, SELFPAY ==
--- NOTE | 2023-11-04 14:30 | RT.EKG_ITS ---
APPROVED REPORT Exam: Resting ECG Reason for Exam: Palpitations Patient Location: O HR:76 bpm ECG Measurements Heart Rate 76 AXIS NE 175 P 44 QRSd 86 QRS 18 QT 362 T 31 QTc 408 Conclusion Sinus rhythm...normal P axis, V-rate 50- 99 Low voltage, precordial leads...precordial leads <1.0mV Otherwise normal ECG
== END 2023-11-04 14:32 | disposition home or self-care (01) ==
LOC: DI.KIM 14:32
PROVIDERS: PCP Nurse Practitioner Adult Health; Visit Provider Family Medicine
DX: R00.2 Palpitations (principal)
CPT/HCPCS: 93010

== ENCOUNTER 2023-11-06 14:29 | Outpatient (RCR) | payer MEDICARE, SELFPAY ==
--- NOTE | 2023-11-06 14:30 | HOLTER_ITS ---
APPROVED REPORT Conclusion This is a 24-hour Holter monitor Rhythm throughout was sinus with an average heart rate of 72. Minimum was 59, maximum 106 There were 2 isolated premature ventricular contractions A total of 60 atrial premature beats occurred There was no atrial fibrillation, no high-grade AV block, no pauses greater than 3 seconds
== END 2023-11-11 23:59 | disposition home or self-care (01) ==
LOC: CARDOPNVT 14:29
PROVIDERS: PCP Nurse Practitioner Adult Health; Visit Provider Family Medicine
DX: R00.2 Palpitations (principal)
CPT/HCPCS: 93227; 93225; 93226

== ENCOUNTER → 2023-11-10 01:10 | Outpatient (CLI) | payer MEDICARE, SELFPAY ==
--- NOTE | 2023-11-10 06:15 | ETT_ITS ---
APPROVED REPORT Exam: Exercise Treadmill Patient Location: Out-Patient Room/Bed: Stress Nurse: Scotty Gonzáles RN Ordering Provider:SRI SWANSON, Contact Number: [phone] BMI: 23.24 Baseline Rhythm: Sinus Rhythm Medical History Medical History: Hyponatremia, osteoarthritis, anxiety, HLD, hypothyroidism, depreddive disorder, fib romyalgia. Allergies: Rosuvastatin. Cardiac Risk Factors: Hyperlipidemia Pretest Chest Pain Characteristics: No chest pain Exercise History: Sedentary Lung Sounds: Clear to auscultation Heart Sounds: Regular Stress Test Details Test: Exercise stress testing was performed using a Phi protocol. Rest Stress HR Resting HR Supine: 84 bpm Max Heart Rate (APMHR): 152 bpm Resting HR Standin bpm Target HR (85% APMHR): 129 bpm Max HR Achieved: 135 bpm % of APMHR: 89 Recovery HR: 82 bpm HR response to stress: Normal HR response to stress BP Resting BP Supine: 122/66 mmHg Resting BP Standin/70 mmHg Max BP: 160/70 mmHg Recovery BP: 142/72 mmHg BP response to stress: Normal blood pressure response to stress. ECG Resting ECG: Sinus Rhythm Stress ECG: Sinus Tachycardia ST Change: No significant ST segment changes noted Arrhythmia: VPC's Recovery ECG: Sinus Rhythm Recovery ST Change: No significant ST segment changes noted Clinical Reason for Termination: Fatigue, Target HR Achieved Stress Symptoms: none Exercise duration: 3 min37 sec Highest Stage Reached: Stage 2: 2.5 mph at 12% grade. Exercise capacity: 5.60 METs Angina Score: None Hanson Treadmill Score: 3.7 Rate Pressure Product: 18994 Stress ECG Conclusion 1. Resting electrocardiogram showed low voltage, otherwise normal 2. Patient exercised on the Phi protocol. She completed a workload of 5.6 METS 3. Normal heart rate and blood pressure response to exercise. Peak heart rate was 89% of maximal pre dicted for age 4. There was no electrocardiographic evidence of myocardial ischemia 5. There were no significant dysrhythmias Hanson Treadmill Score is 3.7 which is Moderate risk. Stress Test Summary STAGE Time (mins) Speed (mph) Grade (%) HR BP SpO2 SYMPTOMS METS Supine 84 122/66 97 Standing 91 102/70 97 1 3 1.7 10 125 120/62 95 4.5 1 min recovery 119 152/62 96 3 min recovery 88 160/70 6 min recovery 83 146/78 95 9 min recovery 82 142/72
== END ==
PROVIDERS: PCP Nurse Practitioner Adult Health; Visit Provider Family Medicine
DX: I20.9 Angina pectoris, unspecified (principal)
CPT/HCPCS: 93016; 93018; 93017

== ENCOUNTER → 2024-06-21 10:21 | Outpatient (BNVA) | payer MEDICARE, SELFPAY | PROVIDERS: PCP Nurse Practitioner Adult Health; Referring Provider Nurse Practitioner Adult Health; Visit Provider Surgery | DX: L82.0 Inflamed seborrheic keratosis (principal) | CPT/HCPCS: 17000; 99213 ==

== ENCOUNTER 2024-06-29 02:57 | Outpatient (CLI) | payer MEDICARE, SELFPAY ==
[2024-06-29 07:56] LABS: Anion Gap 2.7 mmol/L (3-11); BUN 13 mg/dL (7-18); CO2 33.3 mmol/L (21.0-32.0); CREATININE 0.8 mg/dL (0.55-1.02); Calculated LDL 114 mg/dL (<100); Chloride 104 mmol/L (98-107); Cholesterol 205 mg/dL (<200); Estimated GFR 80.21 (mL/min/1.73m2); Glucose 102 mg/dL (74-106); HDL Cholesterol 59 mg/dL (40-60); Potassium 3.9 mmol/L (3.5-5.1); Sodium 140 mmol/L (136-145); TSH (W/Ref FT4) 1.74 uIU/mL (0.36-3.74); Triglyceride 161 mg/dL (<150)
== END 2024-06-29 02:58 | disposition home or self-care (01) ==
LOC: LBO 02:57
PROVIDERS: PCP Nurse Practitioner Adult Health; Visit Provider Nurse Practitioner Adult Health
DX: E03.9 Hypothyroidism, unspecified (principal); E78.01 Familial hypercholesterolemia; F32.9 Major depressive disorder, single episode, unspecified; F41.9 Anxiety disorder, unspecified
CPT/HCPCS: 36415; 80048; 80061; 84443

== ENCOUNTER 2024-11-09 00:09 | Outpatient (CLI) | payer MEDICARE, SELFPAY ==
--- NOTE | 2024-11-09 07:00 | DI.MAMMO_ITS ---
Exam(s) MAMMO SCREENING EXAM: MAMMO SCREENING CLINICAL HISTORY: screening,Z12.39 TECHNIQUE: Mammograms were interpreted according to the usual protocol including computer analysis w [employer] CAD system, tomosynthesis and C-view imaging. COMPARISON: 2015 through 2023 FINDINGS: The breasts are composed of mainly fatty density , Breast Density category A. No suspicious masses or suspicious microcalcifications are seen. No skin thickening or abnormal axillary lymph nodes are seen. There has been no significant change from prior exams. IMPRESSION: BI-RADS Category 1, Negative mammogram Yearly screening mammography is recommended. Breast Density - Category A, fatty density. A negative radiographic report should not delay biopsy if a dominant or clinically suspicious mass is present. Up to ten percent of cancers are not identified on mammography. A negative report may reinforce clinical impression. Adenosis and dense breasts may obscure an underlying neoplasm. False positive reports average 6 to 10%. Patient will receive a letter notifying them of these results.
== END 2024-11-09 00:29 ==
LOC: DI 00:09
PROVIDERS: PCP Nurse Practitioner Adult Health; Visit Provider Nurse Practitioner Adult Health
DX: Z12.31 Encounter for screening mammogram for malignant neoplasm of breast (principal); R92.313 Mammographic fatty tissue density, bilateral breasts
CPT/HCPCS: 77063; 77067